=== PATIENT | female | born 1985 | race African-American/Black ===

== ENCOUNTER 2024-10-23 09:45 | Outpatient (RCR) | payer MEDICARE, MEDICAID, SELFPAY ==
--- NOTE | 2024-10-23 10:28 | PT.OIERPT ---
PT OP Initial Eval Patient Information Outpatient Physical Therapy Treatment Date: 10/23/24 Visit Reasons: Back pain/neck and shoulder pain Medical Diagnosis: Neck Pain Treatment Dx #1: Neck Pain Start of Care: 10/23/24 Date of Onset: 3 years ago Smoking Status Smoking Status: Current every day smoker (yes) Cessation Counseling Provided: ISAAC was advised that quitting smoking is the single most important factor to protect the health of themselves and their family. Discussed the benefits of quitting smoking with patient. Encouraged patient to quit smoking and provided Cessation assistance materials and resources. Tobacco Use: Cigarette Years smoked: 10 Are you interested in quitting?: No Would you like additional Smoking Cessation Counseling?: No Initial Assessment Subjective: Pt is a 39 y/o female reports of chronic neck pain (05/10) with BUE weakness and numbness. Pt's xray negative no MRI thus far. Pt has limitation with sleeping, gripping, lifting, chores, and performing recreational activities. Objective: C/S AROM: all motions are 75 % towards end range with pain in all plane BUE AROM: all motions are WFL BUE MMTs: grossly 3/5 Scapula MMTs: grossly 3/5 Special Test (+) spurling Assessment: Pt demonstrate neck pain with mobility deficits leading to difficulty with ADLs. Pt will attempt physical therapy if pain persist Pt will be refer back to provider for further consultation. Short Term and Group Home Goals 1) Increase C/S AROM WFL in 6 wks to be able to perform chores 2) Decrease neck pain to 2/10 in 6 wks to be able to sit and stand more than 30 mins 3) Increase BUE MMTs grossly to 3+/5 in 6 wks to be able to perform overhead motions 4) Increase scapula MMTs grossly to 3+/5 in 6 wks to be able to perform lifting activities 5) Indep with HEP Treatment Plan 1) Manual Therapy 2) Therapeutic Activities 3) Therapeutic Exercises 4) Modalities (ice, heat, traction) Frequency and Duration: 2 x wk for 6 wks Certification Dates: 10/23/24 to 01/21/25 Procedure Charges OP PT Eval Mod Complex 30 minutes: Yes
== END 2024-10-31 23:59 | disposition home or self-care (01) ==
LOC: CPTX 09:45
PROVIDERS: PCP Nurse Practitioner Family; Referring Provider Nurse Practitioner Family; Visit Provider Nurse Practitioner Family
DX: M54.2 Cervicalgia (principal); R53.1 Weakness; G89.29 Other chronic pain; Z71.6 Tobacco abuse counseling; F17.210 Nicotine dependence, cigarettes, uncomplicated
CPT/HCPCS: 97162

== ENCOUNTER 2024-11-09 09:30 | Outpatient (RCR) | payer MEDICARE, MEDICAID, SELFPAY ==
--- NOTE | 2024-11-02 10:26 | PT.ODAYNRPT ---
PT Outpatient Daily Note OP Daily Note Outpatient Physical Therapy Treatment Date: 11/02/24 Visit Reasons: Back pain/Shoulder pain Subjective: Pt's neck pain is about the same and continues to have pain running down her fingers. Objective: Please see flow chart for list of ther ex performed Assessment: cues to decrease guarded with passive stretching. Minimal changes in radicular pain down her arms post PT Plan: Continue with PT Length of Time (minutes) of Treatment: 30 Minutes Procedure Charges Therapeutic Exercise 30 minutes: Yes
--- NOTE | 2024-11-09 09:27 | PT.ODAYNRPT ---
PT Outpatient Daily Note OP Daily Note Outpatient Physical Therapy Treatment Date: 11/09/24 Visit Reasons: Back pain/Shoulder pain Subjective: Pt reports neck is hurting on L side really bad to day. Objective: Please see flow sheet for ther ex list. Assessment: Pt presents in clinic with c/o high pain of c/s. Performed light STM, pt tolerated with minimal discomfort, near end of STM pt tolerance improved. Plan: Continue with POC. Length of Time (minutes) of Treatment: 30 Minutes Procedure Charges Therapeutic Exercise 30 minutes: Yes
--- NOTE | 2024-12-01 14:06 | PT.ODS1RPT ---
PT OP Progress/Discharge Note Date of Service: 12/01/24 Progress Note/DC Note Progress Note/Discharge Note: DC Note Patient Information Visit Reasons: Back pain/Shoulder pain Service Discharge Date: 12/01/24 Status Assessment: Pt has been seen for 3 visits (eval + 2 visits) inconsistently. Pt last treated on 11/09/24. Pt no showed 11/14 and 11/16 appt. At this time Pt will be d/c from care due to non-compliance per attendance policy. Pt did not meet set goals in therapy; thank you for your referrals
== END 2024-12-01 23:59 | disposition home or self-care (01) ==
LOC: CPTX 09:30
PROVIDERS: PCP Nurse Practitioner Family; Referring Provider Nurse Practitioner Family; Visit Provider Nurse Practitioner Family
DX: M54.2 Cervicalgia (principal); R53.1 Weakness; R20.0 Anesthesia of skin
CPT/HCPCS: 97110